=== PATIENT | female | born 1955 | race African-American/Black ===

== ENCOUNTER → 2017-08-14 | Outpatient (CLI) | payer BC ==
--- NOTE | 2017-08-14 15:22 | PCVCIMAG ---
APPROVED REPORT Study performed: 08/14/2017 10:18:52 EXAM: Comprehensive 2D, Doppler, and color-flow Echocardiogram Patient Location: Echo lab Room #: 3Status: routine BSA: 1.75 HR: 49 bpm Rhythm: Bradycardia Other Information Study Quality: Good Risk Factors: Cardiac Risk Factors: HTN, Hyperlipidemia Indications Mitral Valve Disease Murmur Tricuspid regurgitation 2D Dimensions LVEF(%): 80.01 (>50%) IVSd: 7.42 (7-11mm)LVOT Diam: 18.01 (18-24mm) LVDd: 45.88 mm PWd: 8.92 (7-11mm)Ascending Ao: 33.12 (22-36mm) LVDs: 23.61 (25-40mm) Left Atrium: 44.15 (27-40mm) Aortic Root: 22.73 mm LV Single Plane 4CH: 68.13 % LV Single Plane 2CH: 64.18 %Kaur's LVEF: 66.15 % Biplane EF: 67.8 % Volumes Left Atrial Volume (Systole) Single Plane 4CH: 64.96 mLSingle Plane 2CH: 55.68 mL Biplane LA Volume: 68.00 mLLA ESV Index: 38.00 mL/m2 Aortic Valve AoV Peak Forrest.: 1.60 m/s AO Peak Gr.: 10.28 mmHgLVOT Max P.02 mmHg LVOT Max V: 1.12 m/s JOHNNY Vmax: 1.78 cm2 Mitral Valve E/A Ratio: 1.1 MV Decel. Time: 142.08 ms MV E Max Forrest.: 0.66 m/s MV A Forrest.: 0.62 m/s MV PHT: 41.20 ms IVRT: 110.73 ms TDI E/Lateral E': 9.43E/Medial E': 11.00 Medial E' Forrest.: 0.06 m/s Lateral E' Forrest.: 0.07 m/s Pulmonary Valve PV Peak Forrest.: 1.22 m/sPV Peak Gr.: 5.92 mmHg Pulmonary Vein P Vein S: 0.43 m/sP Vein A: 0.27 m/s P Vein D: 0.39 m/sP Vein A Dur.: 101.5 msec P Vein S/D Ratio: 1.10 Tricuspid Valve TR Peak Forrest.: 2.83 m/s TR Peak Gr.: 32.10 mmHg TV Vmax: 0.62 m/sPA Pressure: 39.00 mmHg Left Ventricle The left ventricle is normal size. There is normal LV segmental wall motion. There is normal left ventricular wall thickness. Left ventricular systolic function is normal. The left ventricular ejection fraction is within the normal range. LVEF is 65-70%. The left ventricular diastolic function is normal. Right Ventricle The right ventricle is normal size. The right ventricular systolic function is normal. Atria Left atrium is mildly dilated. Right atrium is mildly dilated. Aortic Valve Aortic valve is trileaflet. Aortic valve leaflets are mildly thickened. No aortic regurgitation is present. There is no aortic valvular stenosis. Mitral Valve The mitral valve is normal in structure. There is no mitral valve regurgitation noted. No evidence of mitral valve stenosis. Tricuspid Valve The tricuspid valve is normal in structure. Mild to moderate tricuspid regurgitation with a PA pressure of 39 mmHg Mild pulmonary hypertension.. Pulmonic Valve The pulmonary valve is normal in structure. There is no pulmonic valvular regurgitation. Great Vessels The aortic root is normal in size. Aortic arch is not well visualized. IVC is normal in size and collapses with >50% inspiration Pericardium There is no pericardial effusion. There is no pleural effusion. <Conclusion> The left ventricle is normal size. Left ventricular systolic function is normal. The left ventricular ejection fraction is within the normal range. LVEF is 65-70%. The left ventricular diastolic function is normal. The right ventricle is normal size. Left atrium is mildly dilated. Right atrium is mildly dilated. Aortic valve is trileaflet. Aortic valve leaflets are mildly thickened. There is no aortic valvular stenosis. There is no mitral valve regurgitation noted. Mild to moderate tricuspid regurgitation with a PA pressure of 39 mmHg Mild pulmonary hypertension.. There is no pericardial effusion.
== END | disposition home or self-care (01) ==
LOC: PCVCIMAG 09:33
PROVIDERS: ATTEND Internal Medicine Cardiovascular Disease
DX: I08.1 Rheumatic disorders of both mitral and tricuspid valves (principal); R01.1 Cardiac murmur, unspecified
CPT/HCPCS: 93306

== ENCOUNTER → 2018-05-05 | Outpatient (CLI) | payer BC ==
--- NOTE | 2018-05-05 17:14 | PCVCIMAG ---
APPROVED REPORT Study performed: 05/05/2018 16:08:30 Exam: Stress Echocardiogram Indication: Hyperlipidemia, Hypertension Patient Location: Echo lab Stress Nurse: Kianna Martinez RN Room #: 2 Status: routine Ht: 5 ft 6 in HR: 74 bpm BP: 140/82 mmHg Rhythm: NSR Medical History Medical History: HTN, Hyperlipidemia,MR,TR Cardiac Risk Factors: HTN, Hyperlipidemia Pretest Chest Pain Characteristics: No chest pain Procedure The patient underwent an Exercise Stress Test using the Caleb Protocol. Blood pressure, heart rate, and EKG were monitored. An Echocardiogram was performed by machines technician in four stages in quad fashion. At peak stress, four selected images were obtained and placed side by side with resting images for comparison. Stress Test Details Stress Test: Exercise stress testing was performed using a Caleb protocol. HR Resting HR: 74 bpmMax Heart Rate (APMHR): 160 bpm Max HR Achieved: 146 bpmTarget HR (85% APMHR): 136 bpm % of APMHR: 91 Recovery HR: 81 bpm BP Resting BP: 140/82 mmHg Max BP: 194/94 mmHg Recovery BP: 160/84 mmHg ECG Resting ECG: Sinus Rhythm Stress ECG: Sinus Rhythm ST Change: Non-ischemic Arrhythmia: rare PVC Recovery ECG: Sinus Rhythm Recovery ST Change: Non-ischemic Recovery Arrhythmia: None Clinical Reason for Termination: Maximal effort Stress Symptoms: none Exercise duration: 6 min 37 sec Exercise capacity: 8.9 METs Overall Exercise Capacity for Age: Good Scale: Active Angina Score: None No complications. Stress ECG Conclusion The patient exercised according to the CALEB protocol fo r6:37 mins; achieving a work level of 8.9 METS. The resting heart rate of 74 bpm quentin to a maximum heart rate of 146 bpm. This value represent 91 % of the maximal, age-predicted heart rate. The resting blood pressure of 140/82 mmHg, quentin to a maximum blood pressure of 194/94 mmHg. The exercise test was stopped due to fatigue. Pre-Stress Echo The resting Echocardiogram showed normal left ventricular contractility with an estimated Ejection Fraction of about 55-60%. Normal wall motion in all segments on baseline images. Post-Stress Echo The stress Echocardiogram showed normal left ventricular contractility with an estimated Ejection Fraction of about 65-70%. Normal augmentation of wall motion in all segments on post stress images. Clinical No clinical or ECG evidence for ischemia. Conclusion Clinical Response: Non-ischemic Exercise Capacity: Average Stress ECG Response: Non-ischemic Stress Echo Images: Non-ischemic No echocardiographic evidence for exercise induced ischemia. No clinical, EKG or echocardiographic evidence for ischemia. Normal stress echocardiogram with maximal exercise stress. <Conclusion> No echocardiographic evidence for exercise induced ischemia. No clinical, EKG or echocardiographic evidence for ischemia. Normal stress echocardiogram with maximal exercise stress.
== END | disposition home or self-care (01) ==
LOC: PCVCIMAG 16:33
PROVIDERS: ATTEND Internal Medicine Cardiovascular Disease
DX: I10 Essential (primary) hypertension (principal); R06.09 Other forms of dyspnea; E78.5 Hyperlipidemia, unspecified
CPT/HCPCS: 93325; 93351

== ENCOUNTER → 2018-12-02 | Outpatient (CLI) | payer BC ==
--- NOTE | 2018-12-02 16:58 | PCVCIMAG ---
EXAM: ULTRASOUND OF THE THYROID INDICATION: Thyroid nodules. FINDINGS: The right thyroid lobe measures 2.3 x 2.8 x 5.4 cm. The left thyroid lobe measures 2.0 x 2.4 x 5.7 cm. Multiple small nodules throughout both thyroid lobes. In the mid right thyroid lobe is a 0.5 x 0.9 x 1.8 cm solid nodule. There is a 1.1 x 0.4 x 1.1 cm solid nodule mid/upper right thyroid lobe medially. There is a 0.6 x 0.8 x 0.9 cm solid nodule mid/upper left thyroid lobe medially. There is a 0.3 x 0.6 x 1.0 cm solid nodule mid left thyroid lobe laterally. IMPRESSION: Multinodular thyroid goiter. No prior studies available for comparison. If needed further evaluation by ENT could be done. LOC:[id number]
== END | disposition home or self-care (01) ==
LOC: PCVCIMAG 15:13
PROVIDERS: ATTEND Internal Medicine Cardiovascular Disease
DX: E04.2 Nontoxic multinodular goiter (principal); E05.90 Thyrotoxicosis, unspecified without thyrotoxic crisis or storm
CPT/HCPCS: 76536

== ENCOUNTER → 2019-08-13 | Outpatient (CLI) | payer BC ==
--- NOTE | 2019-08-13 19:12 | PCVCIMAG ---
APPROVED REPORT Study performed: 08/13/2019 16:28:03 Exam: Stress Echocardiogram Indication: Hyperlipidemia, Hypertension Patient Location: Echo lab Stress Nurse: Sonia Weber RN Status: routine Ht: 5 ft 5 in HR: 62 bpm BP: 170/94 mmHg Rhythm: NSR Medical History Medical History: Mitral regurgitation, Tricuspid regurgitation Procedure The patient underwent an Exercise Stress Test using the Mk Protocol. Blood pressure, heart rate, and EKG were monitored. An Echocardiogram was performed by electrophysiology technician in four stages in quad fashion. At peak stress, four selected images were obtained and placed side by side with resting images for comparison. Stress Test Details Stress Test: Exercise stress testing was performed using a Mk protocol. HR Resting HR: 62 bpmMax Heart Rate (APMHR): 158 bpm Max HR Achieved: 151 bpmTarget HR (85% APMHR): 134 bpm % of APMHR: 95 Recovery HR: 74 bpm HR response to stress: Normal HR response to stress BP Resting BP: 170/94 mmHg Max BP: 170/94 mmHg Recovery BP: 156/78 mmHg BP response to stress: Normal blood pressure response to stress. ECG Resting ECG: Sinus Rhythm Stress ECG: Sinus Rhythm Recovery ECG: Sinus Rhythm Clinical Reason for Termination: Maximal effort Exercise duration: 8 min sec Highest Stage Achieved: Stage 3: 3.4 mph at 14% grade. Exercise capacity: 10.10 METs Overall Exercise Capacity for Age: Good Pre-Stress Echo The resting Echocardiogram showed normal left ventricular contractility with an estimated Ejection Fraction of about 55-60%. Normal wall motion in all segments on baseline images. Post-Stress Echo The stress Echocardiogram showed normal left ventricular contractility with an estimated Ejection Fraction of about 60-65%. Normal augmentation of wall motion in all segments on post stress images. Clinical No clinical or ECG evidence for ischemia. Conclusion Clinical Response: Non-ischemic Exercise Capacity: Average Stress ECG Response: Non-ischemic Stress Echo Images: Non-ischemic Mild mitral and triscuspid regurgitation. Trace aortic insufficiency. Pulmonary artery pressure is 57mmHg. Other Information Study Quality: Good <Conclusion> Mild mitral and triscuspid regurgitation. Trace aortic insufficiency. Pulmonary artery pressure is 57mmHg.
== END | disposition home or self-care (01) ==
LOC: PCVCIMAG 15:02
PROVIDERS: ATTEND Internal Medicine Cardiovascular Disease
DX: I08.1 Rheumatic disorders of both mitral and tricuspid valves (principal); I10 Essential (primary) hypertension; E78.5 Hyperlipidemia, unspecified
CPT/HCPCS: 93325; 93351